=== PATIENT | female | born 1950 | race Caucasian/White ===

== ENCOUNTER 2018-08-31 23:04 | Emergency (ER) | payer BC, MEDICARE ==
--- NOTE | 2018-08-31 23:17 | EDM.PDOC ---
ED HPI GENERAL MEDICAL PROBLEM - General Chief Complaint: Upper Extremity Injury/Pain Stated Complaint: BROKE HER ARM Time Seen by Provider: 08/31/18 23:05 Source of Information: Reports: Patient History Limitations: Reports: No Limitations - History of Present Illness INITIAL COMMENTS - FREE TEXT/NARRATIVE: 68-year-old female slipped on the ice hurting her left arm. She was getting into a car when she slipped, fell backwards onto her left arm and has significant pain to the shoulder area. She is unable to move the arm. It feels tingly down the arm but sensation is intact, any movement even at the elbow is painful. Onset: Sudden Duration: Hour(s): (Within the last 2 hours) Location: Reports: Upper Extremity, Left Severity: Severe Associated Symptoms: Reports: No Other Symptoms Left Arm Pain Score (Numeric/FACES): 9 - Related Data Allergies Allergy/AdvReac Type Severity Reaction Status Date / Time No Known Allergies Allergy Verified 08/31/18 23:26 Home Meds: Home Meds Aspirin [Halfprin] 81 mg PO DAILY 04/13/16 [History] Atenolol 50 mg PO BID 04/13/16 [History] [place] Cit/D3/K/Mag Ox/Stron/Bor [Theracal D2000] 1 each PO DAILY 04/13/16 [History ] Dorzolamide/Timolol [Cosopt 2%-0.5% Ophth Soln] 1 drop OP BID 04/13/16 [History] Lactobacillus Acidophilus [Probiotic] 1 each PO DAILY 04/13/16 [History] Lovastatin 10 mg PO DAILY 04/13/16 [History] [place]-3 Fatty Acids/Fish Oil [Cvs Fish Oil 1,000 mg Softgel] 1 each PO DAILY [History] cycloSPORINE [Restasis] 1 each OP BID 04/13/16 [History] metFORMIN [Glucophage] 500 mg PO BIDMEALS 04/13/16 [History] LORazepam [Ativan] 0.5 mg PO Q4H PRN #12 tablet 04/18/16 [Rx] Past Medical History HEENT History: Reports: Cataract, Glaucoma, Impaired Vision Cardiovascular History: Reports: High Cholesterol, Hypertension Respiratory History: Reports: Other (See Below) Other Respiratory History: raspy voice sinced of 1st child Gastrointestinal History: Reports: Chronic Constipation, Chronic Diarrhea, Colon Polyp, GERD, Hemorrhoids, Irritable Bowel Syndrome, Other (See Below) Other Gastrointestinal History: elevated liver enzymes 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: 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, Polycystic Ovaries, Endocrine/Metabolic History: Reports: Diabetes, Type II, Obesity/BMI 30+ - Past Surgical History GI Surgical History: Reports: Colonoscopy, Other (See Below) Female Surgical History: Reports: Breast Biopsy, Hysterectomy, Salpingo- Oophorectomy Review of Systems - Review of Systems Review Of Systems: See Below Constitutional: Denies: Fever Respiratory: Reports: No Symptoms Cardiovascular: Reports: No Symptoms GI/Abdominal: Reports: No Symptoms Skin: Denies: Bruising Neurological: Denies: Headache Psychiatric: Reports: Anxiety ED EXAM, GENERAL - Physical Exam Exam: See Below Exam Limited By: No Limitations General Appearance: Alert, Moderate Distress Head: Atraumatic Neck: Supple Respiratory/Chest: No Respiratory Distress Extremities: Other (Patient has significant discomfort to palpation around the left shoulder with a defect under the ac joint area and fullness anteriorly. The elbow was nontender, wrist is not injured) Course - Vital Signs Last Recorded V/S: Last Vital Signs Temp 99.1 F 08/31/18 23:13 Pulse 122 H 08/31/18 23:13 Resp 20 08/31/18 23:13 BP Pulse Ox 95 08/31/18 23:13 - Orders/Labs/Meds Orders: Active Orders 24 hr Category Date Time Status Shoulder Comp Lt [CR] Stat Exams 08/31/18 23:14 Taken Shoulder Comp Lt [CR] Stat Exams 09/01/18 00:05 Taken DME for Discharge [COMM] Stat Oth 08/31/18 23:58 Ordered Meds: Medications Discontinued Medications Generic Name Dose Route Start Last Admin Trade Name Moiseq PRN Reason Stop Dose Admin Hydromorphone HCl 1 mg 08/31/18 23:15 09/01/18 00:36 Dilaudid IM 08/31/18 23:16 1 mg ONETIME ONE Administration Sodium Chloride 1,000 mls @ 500 mls/hr 08/31/18 23:45 08/31/18 23:56 Normal Saline IV 500 mls/hr ASDIRECTED CHITO Administration Propofol 100 mg 08/31/18 23:42 08/31/18 23:48 Diprivan 20 Ml IVPUSH 08/31/18 23:43 60 mg ONETIME ONE Administration - Re-Assessments/Exams Free Text/Narrative Re-Assessment/Exam: 08/31/18 23:17 Patient was given 1 mg of IM Dilaudid and a left shoulder x-ray was obtained. 09/01/18 00:06 X-ray confirmed an anterior dislocation of the left shoulder. An IV was started , normal saline was run at 500 mL an hour and the patient was prepared for propofol anesthesia. This was done after consent. 60 mg of IV propofol was used to sedate the patient, and the shoulder was reduced with countertraction without difficulty. She woke fairly rapidly, a sling was applied and discharge instructions given. She is to wear the sling through the weekend with gradual increase in range of motion of the left arm without extending the arm or significant abduction. She has an appointment with her primary doctor next week and they can discuss further treatment or orthopedic consultation if necessary. 09/01/18 00:08 Prior to discharge a postreduction x-ray confirmed proper anatomic reduction without fracture Departure - Departure Time of Disposition: 00:43 Disposition: Home, Self-Care 01 Condition: Good Clinical Impression: Anterior dislocation of left shoulder Qualifiers: Encounter type: initial encounter Qualified Code(s): S43.015A - Anterior dislocation of left humerus, initial encounter - Discharge Information Instructions: Shoulder Dislocation, [id number] Referrals: Lam Storm MD [Primary Care Provider] - Forms: ED Department Discharge Care Plan Goals: Wear sling for the majority of the weekend, and avoid reaching up or backwards with your left arm until your recheck with your regular doctor next week. You can gradually increase activity with the left arm out of the sling as long as you are avoiding reaching upper backwards. Ibuprofen will help with discomfort. - My Orders Last 24 Hours: My Active Orders 08/31/18 23:14 Shoulder Comp Lt [CR] Stat 08/31/18 23:58 DME for Discharge [COMM] Stat 09/01/18 00:05 Shoulder Comp Lt [CR] Stat - Assessment/Plan Last 24 Hours: My Active Orders 08/31/18 23:14 Shoulder Comp Lt [CR] Stat 08/31/18 23:58 DME for Discharge [COMM] Stat 09/01/18 00:05 Shoulder Comp Lt [CR] Stat
[2018-08-31] MEDS: HYDROmorphone 1 MG/ML Syringe IM ONE (23:24)
[2018-08-31] MEDS ORDERED: Propofol 200 MG/20 ML SDV IVPUSH ONE (23:42)
[2018-08-31] MEDS ORDERED: Sodium Chloride 0.9% 1,000 ML IV SCH (23:45)
[2018-09-01] MEDS: HYDROmorphone 1 MG/ML Syringe IM ONE (00:36)
--- NOTE | 2018-09-01 13:06 | CR ---
Left shoulder There is an anterior inferior dislocation of the humeral head. There is no evidence of fracture. Impression: 1. Shoulder dislocation.
--- NOTE | 2018-09-01 13:07 | CR ---
Left shoulder There is successful reduction of the dislocated shoulder. There is normal alignment. There is no evidence for fracture.
== END 2018-09-01 00:45 | disposition home or self-care (01) ==
LOC: JP.ED 23:04
DX: S43.015A Anterior dislocation of left humerus, initial encounter (principal); E11.9 Type 2 diabetes mellitus without complications; E78.00 Pure hypercholesterolemia, unspecified; I10 Essential (primary) hypertension; Z79.84 Long term (current) use of oral hypoglycemic drugs; Z79.82 Long term (current) use of aspirin; Z79.899 Other long term (current) drug therapy; W00.0XXA Fall on same level due to ice and snow, initial encounter; Z87.891 Personal history of nicotine dependence
CPT/HCPCS: 23650; 73030; 96372; 99283; J1170; J2704; J7030

== ENCOUNTER 2018-11-22 20:54 | Emergency (ER) | payer MEDICARE ==
[2018-11-22] MEDS ORDERED: LORazepam 0.5 MG Tab PO ONE (21:25)
[2018-11-22] MEDS ORDERED: amLODIPine 10 MG Tab PO STA (21:25)
--- NOTE | 2018-11-22 21:31 | EDM.PDOC ---
ED HPI GENERAL MEDICAL PROBLEM - General Chief Complaint: Cardiovascular Problem Stated Complaint: HIGH BLOOD PRESSURE Time Seen by Provider: 11/22/18 21:15 Source of Information: Reports: Patient, Old Records History Limitations: Reports: Other (incomplete records) - History of Present Illness INITIAL COMMENTS - FREE TEXT/NARRATIVE: 68 yo female with known HTN was seen in an orthopedic office this past Tuesday for a shoulder problem and her BP was in the 160's so she was referred back to her primary. This appt is still in the future. Is on Atenolol bid for her HTN and has not missed any doses. She is unaware of her BP being elevated and has no sx's from this. Today a doctor friend checked her BP and it was over 200 systolic and she was told to come to the ER. Does feel anxious now due to circumstances. Onset: Gradual Onset Date: 11/20/18 Duration: Day(s):, Getting Worse Location: Reports: Generalized Quality: Reports: Other (no pain) Severity: Severe Improves with: Reports: None Worsens with: Reports: Other (? 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 (see below) (none) - Related Data Allergies Allergy/AdvReac Type Severity Reaction Status Date / Time No Known Allergies Allergy Verified 11/22/18 21:13 Home Meds: Home Meds Aspirin [Halfprin] 81 mg PO DAILY 04/13/16 [History] Atenolol 50 mg PO BID 04/13/16 [History] Jarrod Cit/D3/K/Mag Ox/Stron/Bor [Theracal D2000] 1 each PO DAILY 04/13/16 [History ] Dorzolamide/Timolol [Cosopt 2%-0.5% Ophth Soln] 1 drop OP BID 04/13/16 [History] Lactobacillus Acidophilus [Probiotic] 1 each PO DAILY 04/13/16 [History] Lovastatin 10 mg PO DAILY 04/13/16 [History] [place]-3 Fatty Acids/Fish Oil [Cvs Fish Oil 1,000 mg Softgel] 1 each PO DAILY [History] cycloSPORINE [Restasis] 1 each OP BID 04/13/16 [History] metFORMIN [Glucophage] 500 mg PO BIDMEALS 04/13/16 [History] LORazepam [Ativan] 0.5 mg PO Q4H PRN #12 tablet 04/18/16 [Rx] Timolol Maleate 1 drop TOP BID 11/22/18 [History] Past Medical History HEENT History: Reports: Cataract, Glaucoma, Impaired Vision Cardiovascular History: Reports: High Cholesterol, Hypertension Respiratory History: Reports: Other (See Below) Other Respiratory History: raspy voice sinced of 1st child Gastrointestinal History: Reports: Chronic Constipation, Chronic Diarrhea, Colon Polyp, GERD, Hemorrhoids, Irritable Bowel Syndrome, Other (See Below) Other Gastrointestinal History: elevated liver enzymes 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: 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, Polycystic Ovaries, Musculoskeletal History: Reports: Other (See Below) Other Musculoskeletal History: left shoulder dislocation Endocrine/Metabolic History: Reports: Diabetes, Type II, Obesity/BMI 30+ - Past Surgical History GI Surgical History: Reports: Colonoscopy, Other (See Below) Female Surgical History: Reports: Breast Biopsy, Hysterectomy, Salpingo- Oophorectomy Social & Family History - Tobacco Use Smoking Status *Q: Former Smoker Used Tobacco, but Quit: Yes Month/Year Tobacco Last Used: 50 years ago - Caffeine Use Caffeine Use: Reports: Coffee, Soda, Tea - Recreational Drug Use Recreational Drug Use: No ED ROS GENERAL - Review of Systems Review Of Systems: See Below Constitutional: Reports: No Symptoms HEENT: Reports: No Symptoms Respiratory: Reports: No Symptoms Cardiovascular: Reports: No Symptoms Endocrine: Reports: No Symptoms GI/Abdominal: Reports: No Symptoms : Reports: No Symptoms Musculoskeletal: Reports: No Symptoms Skin: Reports: No Symptoms Neurological: Reports: No Symptoms Psychiatric: Reports: Anxiety ED EXAM, GENERAL - Physical Exam Exam: See Below Exam Limited By: No Limitations General Appearance: Alert, WD/WN, No Apparent Distress, Anxious Eye Exam: Bilateral Eye: Normal Inspection Ears: Normal External Exam, Normal Canal, Hearing Grossly Normal, Normal TMs Ear Exam: Bilateral Ear: Auricle Normal, Canal Normal, TM normal Nose: Normal Inspection, No Blood Throat/Mouth: Normal Inspection, Normal Lips, Normal Oropharynx, Normal Voice, No Airway Compromise Head: Atraumatic, Normocephalic Neck: Normal Inspection, Supple, Non-Tender Respiratory/Chest: No Respiratory Distress, Lungs Clear, Normal Breath Sounds, No Accessory Muscle Use Cardiovascular: Regular Rate, Rhythm, No Edema GI/Abdominal: Normal Bowel Sounds, Soft, Non-Tender, No Distention Back Exam: Normal Inspection. No: CVA Tenderness (R), CVA Tenderness (L) Extremities: Normal Inspection, Normal Range of Motion, Non-Tender, No Pedal Edema Neurological: Alert, Oriented, CN II-XII Intact, Normal Cognition, No Motor/ Sensory Deficits Psychiatric: Normal Affect, Normal Mood Skin Exam: Warm, Dry, Intact, Normal Color, No Rash Course - Vital Signs Text/Narrative:: BP improved to 200/86 after Ativan 0.5 mg po Last Recorded V/S: Last Vital Signs Temp 35.4 C 11/22/18 21:12 Pulse 78 11/22/18 22:34 Resp 16 11/22/18 22:34 BP 198/69 H 11/22/18 22:34 Pulse Ox 96 11/22/18 22:34 - Orders/Labs/Meds Labs: Laboratory Tests 11/22/18 Range/Units 21:25 Sodium 140 (140-148) mmol/L Potassium 3.9 (3.6-5.2) mmol/L Chloride 105 (100-108) mmol/L Carbon Dioxide 23 (21-32) mmol/L Anion Gap 12.2 (5.0-14.0) mmol/L BUN 19 H (7-18) mg/dL Creatinine 0.8 (0.6-1.0) mg/dL Est Cr Clr Drug Dosing 51.49 mL/min Estimated GFR (MDRD) > 60 (>60) Glucose 134 H (74-106) mg/dL Calcium 9.6 D (8.5-10.1) mg/dL Troponin I < 0.017 (0.000-0.056) ng/mL Meds: Medications Discontinued Medications Generic Name Dose Route Start Last Admin Trade Name Freq PRN Reason Stop Dose Admin Acetaminophen 1,000 mg 11/22/18 22:15 11/22/18 22:33 Tylenol Extra Strength PO 11/22/18 22:16 1,000 mg ONETIME ONE Administration Amlodipine Besylate 10 mg 11/22/18 21:25 11/22/18 22:00 Norvasc PO 11/22/18 21:26 10 mg NOW STA Administration Lorazepam 0.5 mg 11/22/18 21:25 11/22/18 22:00 Ativan PO 11/22/18 21:26 0.5 mg ONETIME ONE Administration Departure - Departure Time of Disposition: 22:45 Disposition: Home, Self-Care 01 Condition: Fair Clinical Impression: HTN, goal below 140/80 Instructions: Hypertension, [id number] Referrals: Lam Storm MD [Primary Care Provider] - Forms: ED Department Discharge Additional Instructions: Avoid added salt. Take amlodipine 5 mg at bedtime daily. Continue your other medications. Recheck with your doctor on Tuesday. Return here for SOB, FENG, or chest pains.
[2018-11-22] MEDS ORDERED: Acetaminophen 500 MG Tab PO ONE (22:15)
[2018-11-22 22:35] VITALS: BP 198/69
== END 2018-11-22 23:02 | disposition home or self-care (01) ==
LOC: JP.ED 20:54
DX: I10 Essential (primary) hypertension (principal); Z79.82 Long term (current) use of aspirin; Z79.899 Other long term (current) drug therapy; Z87.891 Personal history of nicotine dependence
CPT/HCPCS: 36415; 80048; 84484; 99283; A9270

== ENCOUNTER 2022-01-21 04:36 | Emergency (ER) | payer MEDICARE ==
[2022-01-21 04:55] VITALS: BP 197/93; PULSE 97
[2022-01-21] MEDS ORDERED: Sodium Chloride 0.9% 10 ML Syringe FLUSH PRN (04:58)
[2022-01-21] MEDS ORDERED: Ondansetron 4 MG/2 ML SDV IVPUSH ONE (05:09)
[2022-01-21] MEDS ORDERED: HYDROmorphone 0.5 MG/0.5 ML Syringe IVPUSH ONE (05:09)
[2022-01-21] MEDS ORDERED: Iopamidol 612 MG/ML 100 ML Bottle IV STA (05:14)
[2022-01-21] MEDS ORDERED: Sodium Chloride 0.9% 50 ML IV STA (05:14)
[2022-01-21] MEDS ORDERED: metroNIDAZOLE 250 MG Tab PO ONE (06:38)
[2022-01-21] MEDS ORDERED: Acetaminophen/HYDROcodone 325-5 MG Tab PO ONE (06:38)
[2022-01-21] MEDS ORDERED: Ciprofloxacin 500 MG Tab PO ONE (06:38)
== END 2022-01-21 07:08 | disposition home or self-care (01) ==
LOC: JP.ED 04:36
DX: K57.32 Diverticulitis of large intestine without perforation or abscess without bleeding (principal); N30.00 Acute cystitis without hematuria; E78.00 Pure hypercholesterolemia, unspecified; I10 Essential (primary) hypertension; E11.9 Type 2 diabetes mellitus without complications; E66.9 Obesity, unspecified; Z68.30 Body mass index [BMI] 30.0-30.9, adult; Z90.710 Acquired absence of both cervix and uterus; Z87.891 Personal history of nicotine dependence; Z79.899 Other long term (current) drug therapy; Z79.82 Long term (current) use of aspirin; Z79.84 Long term (current) use of oral hypoglycemic drugs; Z88.8 Allergy status to other drugs, medicaments and biological substances; Z88.2 Allergy status to sulfonamides
CPT/HCPCS: 36415; 74177; 80053; 81001; 85025; 86140; 96374; 96375; 99284-25; A9270-GY; J1170; J2405; J3490; Q9967